=== PATIENT | male | born 1965 | race Caucasian/White ===

== ENCOUNTER 2019-07-02 20:10 | Emergency (ER) | payer MEDICAID ==
[~2019-07-02] VITALS: Ht 182.9 cm; Wt 81.0 kg
[~2019-07-02 20:10] MED LIST: CHLO25CA10 PO; DIAZ5TAB PO; HYDR28CR14 TP; KEP500T PO; LIB25C PO; NO HOME MEDS; PERM60CR4 TP; PHEN100C4 PO; PROC-8 PO
--- NOTE | 2019-07-02 20:22 | NUR ---
unable to take patient b/p in triage due to excessive movement
[2019-07-02 20:43] VITALS: BP 127/42
[2019-07-02] MEDS ORDERED: cloNIDine 0.1 mg tablet PO ONE (20:45)
[2019-07-02] MEDS ORDERED: LORazepam 1 MG tablet PO ONE (20:45)
== END 2019-07-02 20:59 | disposition home or self-care (01) ==
LOC: ER 20:11
DX: F11.23 Opioid dependence with withdrawal (principal); R51 Headache; F12.90 Cannabis use, unspecified, uncomplicated; Z86.69 Personal history of other diseases of the nervous system and sense organs; Z90.49 Acquired absence of other specified parts of digestive tract; Z98.890 Other specified postprocedural states; Z59.0 Homelessness; Z56.0 Unemployment, unspecified; Z79.899 Other long term (current) drug therapy
CPT/HCPCS: 99284

== ENCOUNTER 2019-09-04 14:30 | Emergency (ER) | payer MEDICAID ==
[~2019-09-04] VITALS: Ht 182.9 cm; Wt 81.8 kg
[2019-09-04] MEDS ORDERED: buprenorphine/naloxone 8MG-2MG SUBlingual film SL SCH (17:50)
[2019-09-04] MEDS ORDERED: ondansetron/PF 4mg/2ml inj IV ONE (17:50)
[2019-09-04] MEDS ORDERED: pantoprazole 40 MG vial IV ONE (17:50)
[2019-09-04] MEDS ORDERED: normal saline 1000ML IV soln IVB ONE ×2 (17:50)
[2019-09-04] MEDS ORDERED: buprenorphine/naloxone 8MG-2MG SUBlingual film SL ONE ×2 (17:50→18:55)
[2019-09-04] MEDS ORDERED: CAT1P TD (18:58)
[2019-09-04] MEDS ORDERED: ONDA8TAB13 PO (18:58)
[2019-09-04] MEDS ORDERED: LORazepam 1 MG tablet PO ONE (19:55)
[2019-09-04 20:03] VITALS: BP 152/88
== END 2019-09-04 20:05 | disposition home or self-care (01) ==
LOC: ER 14:30
DX: F11.23 Opioid dependence with withdrawal (principal); F17.200 Nicotine dependence, unspecified, uncomplicated; F12.90 Cannabis use, unspecified, uncomplicated; Z59.0 Homelessness; Z56.0 Unemployment, unspecified; Z90.49 Acquired absence of other specified parts of digestive tract; Z87.442 Personal history of urinary calculi; Z79.899 Other long term (current) drug therapy
CPT/HCPCS: 96374; 96375; 99284; C9113; J2405; J7030

== ENCOUNTER 2019-09-14 06:09 | Inpatient (IN) | payer MEDICAID ==
[~2019-09-14] VITALS: Ht 182.9 cm; Wt 73.0 kg
[~2019-09-14 06:09] MED LIST changes: +CAT1P TD; +ONDA8TAB13 PO
[2019-09-14] MEDS ORDERED: normal saline 1000ml 1,000 ML IV ONE (06:26)
[2019-09-14] MEDS ORDERED: LORazepam 2 mg/ml vial IV ONE (06:30)
[2019-09-14] MEDS ORDERED: normal saline 1000ML IV soln IVB ONE (06:30)
[2019-09-14] MEDS ORDERED: thiamine 100mg/ml 2ml inj. IV ONE ×2 (06:35→11:00)
[2019-09-14] MEDS ORDERED: multi-vitamin w/minerals & ferrous gluconate 9 MG/15 ML oral LIQUID PO ONE (06:35)
[2019-09-14] MEDS ORDERED: magnesium 2GM in 50ml NS 50 ML IV ONE (06:35)
[2019-09-14 07:15] LABS: BASOPHILS % (AUTO) 0.2 % (0-1); EOSINOPHILS % (AUTO) 0.3 % (0-6); HEMATOCRIT 43.8 % (42.0-52.0); HEMOGLOBIN 14.8 g/dl (14.0-17.9); LYMPHOCYTES # (AUTO) 1.5 X10'3 (1.1-4.8); LYMPHOCYTES % (AUTO) 13.4 % (21-51); MEAN CORPUSCULAR HEMOGLOBIN 29.9 PG (27.0-31.0); MEAN CORPUSCULAR HGB CONC 33.7 g/dL (33.0-36.5); MEAN CORPUSCULAR VOLUME 88.7 FL (78-98); MEAN PLATELET VOLUME 7.9 FL (7.4-10.4); NEUTROPHILS # (AUTO) 8.4 X10'3 (1.8-7.7); NEUTROPHILS % (AUTO) 77.1 % (42-75); PLATELET COUNT 211 X10'3 (140-440); RED BLOOD COUNT 4.94 X10'6 (4.70-6.10); RED CELL DISTRIBUTION WIDTH 14.1 % (11.5-14.5); WHITE BLOOD COUNT 10.9 X10'3 (4.5-11.0)
[2019-09-14 07:22] LABS: COLOR,URINE YELLOW (Yellow); GLUCOSE, URINE NEGATIVE (Neg); KETONES,URINE >=80 mg/dl (Neg); LEUKOCYTE ESTERASE ,URINE NEGATIVE (Neg); NITRITES, URINE NEGATIVE (Neg); OCCULT BLOOD,URINE NEGATIVE (Neg); PROTEIN,URINE 30 mg/dl (Neg)
[2019-09-14 07:23] LABS: UA COLLECTION TYPE VOIDED
[2019-09-14 07:24] LABS: CLARITY,URINE CLOUDY (Clear)
[2019-09-14] MEDS: cloNIDine 0.1 mg tablet PO SCH ×3 (07:26→20:40)
[2019-09-14 07:30] LABS: ALANINE AMINOTRANSFERASE 19 U/L (12-78); ALBUMIN 3.4 G/DL (3.4-5.0); ALBUMIN/GLOBULIN RATIO 1.1 (1.1-1.5); ALKALINE PHOSPHATASE 78 IU/L (46-116); ANION GAP 10 (8-16); ASPARTATE AMINO TRANSFERASE 24 U/L (10-37); BILIRUBIN,TOTAL 1.4 MG/DL (0.1-1.0); BLOOD UREA NITROGEN 19 MG/DL (7-18); BUN/CREATININE RATIO 25.3 (5.4-32.0); CALCIUM 8.5 MG/DL (8.5-10.1); CHLORIDE 102 MMOL/L (99-107); CREATININE 0.75 MG/DL (0.60-1.10); GLUCOSE 105 MG/DL (70-104); POTASSIUM 3.6 MMOL/L (3.5-5.1); SODIUM 138 MMOL/L (135-145); TOTAL CARBON DIOXIDE 25.7 MMOL/L (24-32); TOTAL PROTEIN 6.4 G/DL (6.4-8.2); eGFR > 90 ML/MIN
[2019-09-14 07:33] LABS: CAL OXALATE CRYSTALS 1+ /HPF (NEGATIVE); MUCUS STRANDS MODERATE /LPF (Neg)
[2019-09-14 07:34] LABS: RBC,URINE 0-2 /HPF (0-2); WBC,URINE 0-4 /HPF (0-4)
[2019-09-14 07:35] LABS: BACTERIA,URINE 1+ /HPF (Neg); SQUAMOUS EPITHELIAL CELL,UR FEW /LPF (FEW)
[2019-09-14 07:36] LABS: ETHANOL < 0.010 GM/DL (0.0-0.010)
[2019-09-14 07:37] LABS: CREATINE KINASE 171 U/L (39-308)
[2019-09-14 07:39] LABS: URINE AMPHETAMINE SCREEN POSITIVE (Neg); URINE BARBITUATE SCREEN NEGATIVE (Neg); URINE BENZODIAZEPINES SCREEN NEGATIVE (Neg); URINE CANNABINOID SCREEN POSITIVE (Neg); URINE COCAINE SCREEN NEGATIVE (Neg); URINE METHADONE SCREEN NEGATIVE (Neg); URINE OPIATE SCREEN NEGATIVE (Neg); URINE PHENCYCLIDINE SCREEN NEGATIVE (Neg)
[2019-09-14] MEDS ORDERED: metoclopramide 5 mg/ml inj IV ONE (08:30)
[2019-09-14] MEDS ORDERED: chlordiazePOXIDE 25mg capsule PO ONE (10:25)
[2019-09-14] MEDS ORDERED: GABA800T PO (10:57)
[2019-09-14] MEDS ORDERED: LEVE10002 PO (10:57)
--- NOTE | 2019-09-14 10:58 | NUR ---
ETOH w/d symptoms noted: coarse & fine hand tremors, light/sound sensitivity, tightness around head, occassional visual disturbances (floaties), bouts of nausea. EDMD Melida and Hosopitalist Meena notified.
[2019-09-14] MEDS ORDERED: ondansetron/PF 4mg/2ml inj IV PRN (11:00)
[2019-09-14] MEDS ORDERED: magnesium hydroxide 30ml (MOM) UD suspension PO PRN (11:00)
[2019-09-14] MEDS ORDERED: mag hydrox/Alum hydrox/simeth 30ml oral suspension PO PRN (11:00)
[2019-09-14] MEDS ORDERED: potassium Cl 20 mEq SR tablet PO PRN (11:00)
[2019-09-14] MEDS ORDERED: docusate sod 100mg capsule PO PRN (11:00)
[2019-09-14] MEDS ORDERED: acetaminophen 325mg tablet PO PRN ×2 (11:00)
[2019-09-14] MEDS ORDERED: dextrose 50%-water 50ml dispensing syringe IV PRN (11:00)
[2019-09-14] MEDS ORDERED: magnesium 4gm in 100ml NS 100 ML IV PRN (11:00)
[2019-09-14] MEDS ORDERED: magnesium Cl slow-release 64mg tablet PO PRN (11:00)
[2019-09-14] MEDS ORDERED: potassium CL 10mEq/100ml bag 100 ML IV PRN ×2 (11:00)
[2019-09-14] MEDS ORDERED: haloperidol 5mg tablet PO PRN (11:00)
[2019-09-14] MEDS ORDERED: magnesium 2GM in 50ml NS 50 ML IV PRN (11:00)
[2019-09-14] MEDS ORDERED: haloperidol lactate 5mg/ml inj IM PRN (11:00)
--- NOTE | 2019-09-14 11:47 | NUR ---
Patient in room ED 7. I have received report from Anisa ED RN and had the opportunity to ask questions and assume patient care.
[2019-09-14 12:15] VITALS: BP 129/82
[2019-09-14] MEDS: LORazepam 2 mg/ml vial IV PRN ×5 (12:30→22:34)
[2019-09-14] MEDS: levetiracetam 250mg tablet PO SCH ×2 (13:29→20:40)
--- NOTE | 2019-09-14 16:00 | NUR ---
I let Dr. Robledo know about patient deteriorating condition, she is aware and keep him on withdrawal protocol.
[2019-09-14 18:00] VITALS: BP 93/63
--- NOTE | 2019-09-14 18:30 | NUR ---
Problems reprioritized. Patient report given, questions answered & plan of care reviewed with Prudence RN.
--- NOTE | 2019-09-14 18:48 | NUR ---
Patient in room ORTHO 4020. I have received report from Pily WILHELM and had the opportunity to ask questions and assume patient care. Patient shows no sign of distress and is eating his dinner.
[2019-09-14] MEDS: K and/or MAG REPLACEMENT MC SCH (19:19)
[2019-09-14] MEDS: heparin, porcine 5000 units/ml vial SQ SCH (20:41)
[2019-09-14] MEDS ORDERED: temazepam 15mg capsule PO PRN (21:00)
[2019-09-14 22:00] VITALS: BP 113/72
[2019-09-15] MEDS: LORazepam 2 mg/ml vial IV PRN ×6 (00:32→21:04)
[2019-09-15] MEDS ORDERED: LORazepam 1 MG tablet PO ONE (05:55)
--- NOTE | 2019-09-15 06:05 | NUR ---
Patient in room ORTHO 4020. I have received report from CHOCO Prasad and had the opportunity to ask questions and assume patient care.
--- NOTE | 2019-09-15 06:42 | NUR ---
Problems reprioritized. Patient report given, questions answered & plan of care reviewed with Loulou WILHELM.
[2019-09-15 07:13] LABS: BASOPHILS % (AUTO) 0.3 % (0-1); EOSINOPHILS # (AUTO) 0.1 X10'3 (0-0.9); EOSINOPHILS % (AUTO) 1.6 % (0-6); HEMATOCRIT 42.8 % (42.0-52.0); HEMOGLOBIN 14.5 g/dl (14.0-17.9); LYMPHOCYTES # (AUTO) 1.3 X10'3 (1.1-4.8); LYMPHOCYTES % (AUTO) 17.2 % (21-51); MEAN CORPUSCULAR HEMOGLOBIN 30.1 PG (27.0-31.0); MEAN CORPUSCULAR HGB CONC 33.8 g/dL (33.0-36.5); MEAN CORPUSCULAR VOLUME 89.1 FL (78-98); MEAN PLATELET VOLUME 8.2 FL (7.4-10.4); MONOCYTES # (AUTO) 0.7 X10'3 (0-0.9); MONOCYTES % (AUTO) 8.7 % (2-12); NEUTROPHILS # (AUTO) 5.5 X10'3 (1.8-7.7); NEUTROPHILS % (AUTO) 72.2 % (42-75); PLATELET COUNT 173 X10'3 (140-440); RED BLOOD COUNT 4.81 X10'6 (4.70-6.10); RED CELL DISTRIBUTION WIDTH 13.7 % (11.5-14.5); WHITE BLOOD COUNT 7.6 X10'3 (4.5-11.0)
[2019-09-15] MEDS: levetiracetam 250mg tablet PO SCH ×2 (07:27→19:55)
[2019-09-15] MEDS: cloNIDine 0.1 mg tablet PO SCH ×3 (07:27→19:55)
[2019-09-15] MEDS: heparin, porcine 5000 units/ml vial SQ SCH ×2 (07:27→19:55)
[2019-09-15] MEDS: nicotine 14mg patch - 24hr TD SCH (07:28)
[2019-09-15 07:33] LABS: ALANINE AMINOTRANSFERASE 19 U/L (12-78); ALKALINE PHOSPHATASE 73 IU/L (46-116); ANION GAP 10 (8-16); ASPARTATE AMINO TRANSFERASE 22 U/L (10-37); BILIRUBIN,TOTAL 1.2 MG/DL (0.1-1.0); BLOOD UREA NITROGEN 15 MG/DL (7-18); BUN/CREATININE RATIO 23.4 (5.4-32.0); CALCIUM 8.2 MG/DL (8.5-10.1); CHLORIDE 106 MMOL/L (99-107); CREATININE 0.64 MG/DL (0.60-1.10); GLUCOSE 104 MG/DL (70-104); MAGNESIUM 1.8 MG/DL (1.5-2.4); POTASSIUM 3.1 MMOL/L (3.5-5.1); SODIUM 142 MMOL/L (135-145); TOTAL CARBON DIOXIDE 25.8 MMOL/L (24-32); TOTAL PROTEIN 5.9 G/DL (6.4-8.2); eGFR > 90 ML/MIN
--- NOTE | 2019-09-15 08:03 | NUR ---
Paged PICC RN for PIV placement: "RM 4020A needs PIV or extended placed please. public relations sales marketing attempted x2, pt is in withdrawals and needs ativan IV. Thanks!!"
[2019-09-15] MEDS: K and/or MAG REPLACEMENT MC SCH ×2 (08:58→20:00)
[2019-09-15] MEDS: potassium Cl 20 mEq SR tablet PO PRN ×3 (08:58→16:03)
[2019-09-15 09:50] VITALS: BP 103/72
[2019-09-15 12:31] VITALS: BP 111/87
[2019-09-15 18:00] VITALS: BP 126/89
--- NOTE | 2019-09-15 18:19 | NUR ---
Problems reprioritized. Patient report given, questions answered & plan of care reviewed with CHOCO Arango.
[2019-09-15] MEDS: HYDROcodone/acetaminophen 5mg/325mg tablet PO PRN (19:54)
[2019-09-15 22:00] VITALS: BP 116/76
[2019-09-16] MEDS: LORazepam 2 mg/ml vial IV PRN ×8 (02:29→23:56)
[2019-09-16] MEDS: HYDROcodone/acetaminophen 5mg/325mg tablet PO PRN (03:10)
[2019-09-16] MEDS: morphine 2 MG/ML inj. syringe IV PRN ×4 (03:38→22:34)
[2019-09-16 05:00] VITALS: BP 118/89
[2019-09-16 06:37] LABS: BASOPHILS % (AUTO) 0.3 % (0-1); EOSINOPHILS # (AUTO) 0.2 X10'3 (0-0.9); EOSINOPHILS % (AUTO) 3.5 % (0-6); HEMOGLOBIN 14.1 g/dl (14.0-17.9); LYMPHOCYTES # (AUTO) 1.6 X10'3 (1.1-4.8); LYMPHOCYTES % (AUTO) 27.1 % (21-51); MEAN CORPUSCULAR HEMOGLOBIN 30.6 PG (27.0-31.0); MEAN CORPUSCULAR HGB CONC 34.5 g/dL (33.0-36.5); MEAN CORPUSCULAR VOLUME 88.6 FL (78-98); MEAN PLATELET VOLUME 8.2 FL (7.4-10.4); MONOCYTES # (AUTO) 0.5 X10'3 (0-0.9); MONOCYTES % (AUTO) 8.3 % (2-12); NEUTROPHILS # (AUTO) 3.5 X10'3 (1.8-7.7); NEUTROPHILS % (AUTO) 60.8 % (42-75); PLATELET COUNT 153 X10'3 (140-440); RED BLOOD COUNT 4.63 X10'6 (4.70-6.10); WHITE BLOOD COUNT 5.7 X10'3 (4.5-11.0)
[2019-09-16 06:48] LABS: ALANINE AMINOTRANSFERASE 42 U/L (12-78); ALBUMIN 2.9 G/DL (3.4-5.0); ALKALINE PHOSPHATASE 69 IU/L (46-116); ANION GAP 9 (8-16); ASPARTATE AMINO TRANSFERASE 47 U/L (10-37); BILIRUBIN,TOTAL 0.9 MG/DL (0.1-1.0); BLOOD UREA NITROGEN 11 MG/DL (7-18); BUN/CREATININE RATIO 18.6 (5.4-32.0); CALCIUM 8.5 MG/DL (8.5-10.1); CHLORIDE 106 MMOL/L (99-107); CREATININE 0.59 MG/DL (0.60-1.10); GLUCOSE 133 MG/DL (70-104); MAGNESIUM 1.8 MG/DL (1.5-2.4); POTASSIUM 3.2 MMOL/L (3.5-5.1); SODIUM 139 MMOL/L (135-145); TOTAL CARBON DIOXIDE 24.5 MMOL/L (24-32); TOTAL PROTEIN 5.9 G/DL (6.4-8.2); eGFR > 90 ML/MIN
[2019-09-16] MEDS: nicotine 14mg patch - 24hr TD SCH (07:57)
[2019-09-16] MEDS: heparin, porcine 5000 units/ml vial SQ SCH ×2 (07:58→20:49)
[2019-09-16] MEDS: levetiracetam 250mg tablet PO SCH ×2 (07:58→20:45)
[2019-09-16] MEDS: cloNIDine 0.1 mg tablet PO SCH ×3 (07:59→20:46)
[2019-09-16] MEDS: potassium Cl 20 mEq SR tablet PO PRN ×3 (08:02→20:46)
[2019-09-16] MEDS: K and/or MAG REPLACEMENT MC SCH ×2 (08:03→20:00)
[2019-09-16 10:54] VITALS: BP 116/81
[2019-09-16] MEDS ORDERED: morphine 2 MG/ML inj. syringe IV PRN (12:00)
--- NOTE | 2019-09-16 12:00 | NUR ---
OK to DC neuro checks per MD Robledo.
[2019-09-16] MEDS ORDERED: HYDROcodone/acetaminophen 5mg/325mg tablet PO PRN (12:05)
[2019-09-16] MEDS: thiamine 100mg tablet PO SCH (13:34)
[2019-09-16] MEDS: multivitamins, therapeutics tablet PO SCH (13:34)
[2019-09-16] MEDS: folic acid 1mg tablet PO SCH (13:35)
[2019-09-16] MEDS: HYDROcodone/acetaminophen 10/325mg tab PO PRN ×3 (13:35→23:56)
[2019-09-16 18:00] VITALS: BP 123/89
--- NOTE | 2019-09-16 19:00 | NUR ---
Gave report to Nba WILHELM.
[2019-09-16 22:00] VITALS: BP 96/69
[2019-09-17] MEDS: morphine 2 MG/ML inj. syringe IV PRN ×3 (04:54→14:17)
[2019-09-17] MEDS: LORazepam 2 mg/ml vial IV PRN (04:57)
[2019-09-17 06:00] VITALS: BP 105/85
--- NOTE | 2019-09-17 06:13 | NUR ---
RECEIVED REPORT FROM CHOCO CARABALLO
--- NOTE | 2019-09-17 06:51 | NUR ---
Problems reprioritized. Patient report given, questions answered & plan of care reviewed with BOONE WILHELM.
[2019-09-17] MEDS: K and/or MAG REPLACEMENT MC SCH (07:14)
[2019-09-17] MEDS: LORazepam 1 MG tablet PO PRN ×3 (07:25→11:52)
[2019-09-17] MEDS: folic acid 1mg tablet PO SCH (07:26)
[2019-09-17] MEDS: multivitamins, therapeutics tablet PO SCH (07:26)
[2019-09-17] MEDS: levetiracetam 250mg tablet PO SCH (07:28)
[2019-09-17] MEDS: thiamine 100mg tablet PO SCH (07:28)
[2019-09-17] MEDS: nicotine 14mg patch - 24hr TD SCH (07:31)
[2019-09-17] MEDS: heparin, porcine 5000 units/ml vial SQ SCH (07:34)
[2019-09-17] MEDS: cloNIDine 0.1 mg tablet PO SCH ×2 (07:41→13:00)
[2019-09-17] MEDS: HYDROcodone/acetaminophen 10/325mg tab PO PRN ×2 (07:42→11:51)
[2019-09-17 08:03] LABS: BASOPHILS % (AUTO) 0.3 % (0-1); EOSINOPHILS # (AUTO) 0.1 X10'3 (0-0.9); EOSINOPHILS % (AUTO) 2.1 % (0-6); HEMATOCRIT 43.3 % (42.0-52.0); HEMOGLOBIN 14.8 g/dl (14.0-17.9); LYMPHOCYTES # (AUTO) 2.2 X10'3 (1.1-4.8); LYMPHOCYTES % (AUTO) 31.8 % (21-51); MEAN CORPUSCULAR HEMOGLOBIN 30.4 PG (27.0-31.0); MEAN CORPUSCULAR HGB CONC 34.3 g/dL (33.0-36.5); MEAN CORPUSCULAR VOLUME 88.7 FL (78-98); MEAN PLATELET VOLUME 8.2 FL (7.4-10.4); MONOCYTES # (AUTO) 0.6 X10'3 (0-0.9); MONOCYTES % (AUTO) 8.4 % (2-12); NEUTROPHILS # (AUTO) 3.9 X10'3 (1.8-7.7); NEUTROPHILS % (AUTO) 57.4 % (42-75); PLATELET COUNT 155 X10'3 (140-440); RED BLOOD COUNT 4.88 X10'6 (4.70-6.10); RED CELL DISTRIBUTION WIDTH 13.7 % (11.5-14.5); WHITE BLOOD COUNT 6.8 X10'3 (4.5-11.0)
[2019-09-17 08:26] LABS: ALANINE AMINOTRANSFERASE 86 U/L (12-78); ALBUMIN 3.1 G/DL (3.4-5.0); ALBUMIN/GLOBULIN RATIO 0.9 (1.1-1.5); ALKALINE PHOSPHATASE 75 IU/L (46-116); ANION GAP 9 (8-16); ASPARTATE AMINO TRANSFERASE 66 U/L (10-37); BILIRUBIN,TOTAL 0.8 MG/DL (0.1-1.0); BLOOD UREA NITROGEN 10 MG/DL (7-18); BUN/CREATININE RATIO 16.4 (5.4-32.0); CALCIUM 8.6 MG/DL (8.5-10.1); CHLORIDE 105 MMOL/L (99-107); CREATININE 0.61 MG/DL (0.60-1.10); GLUCOSE 90 MG/DL (70-104); MAGNESIUM 1.9 MG/DL (1.5-2.4); POTASSIUM 3.7 MMOL/L (3.5-5.1); SODIUM 138 MMOL/L (135-145); TOTAL CARBON DIOXIDE 24.5 MMOL/L (24-32); TOTAL PROTEIN 6.4 G/DL (6.4-8.2); eGFR > 90 ML/MIN
[2019-09-17 10:00] VITALS: BP 106/68
[2019-09-17 13:08] VITALS: BP 108/71
[2019-09-17] MEDS ORDERED: MULT-1179 PO (14:32)
[2019-09-17] MEDS ORDERED: NICO-631 TD (14:32)
[2019-09-17] MEDS ORDERED: thiamine tablet PO (14:32)
[2019-09-17] MEDS ORDERED: LORA-269 PO (14:32)
[2019-09-17] MEDS ORDERED: folic acid tablet PO (14:32)
[2019-09-17] MEDS ORDERED: CLON0.1T2 PO (14:32)
[2019-09-17] MEDS ORDERED: HYDR-4353 PO (14:38)
[2019-09-17] MEDS ORDERED: ondansetron 4mg rapidly disintigrating tab PO PRN (15:05)
--- NOTE | 2019-09-17 15:38 | NUR ---
Pt DCed with instructions understanding of instructions and with all belongings in wheelchair to private vehicle to follow up wit PCP. Pt also DCed with walking cane.
[2019-09-18] MEDS ORDERED: LORazepam 1 MG tablet PO PRN (11:00)
[2019-09-18] MEDS ORDERED: LORazepam 2 mg/ml vial IV PRN (11:00)
== END 2019-09-17 15:37 | disposition home or self-care (01) | DRG 53 ==
LOC: ER 06:10 → OBSVTOIN 10:56 → ED HOLD 10:56 → ORTHO 4S 12:11
PROVIDERS: ADMIT Internal Medicine; ATTEND Internal Medicine
DX: R56.9 Unspecified convulsions (principal); F11.20 Opioid dependence, uncomplicated; F10.10 Alcohol abuse, uncomplicated; F15.90 Other stimulant use, unspecified, uncomplicated; F17.210 Nicotine dependence, cigarettes, uncomplicated; E87.6 Hypokalemia; G89.29 Other chronic pain; Z59.0 Homelessness; Z76.5 Malingerer [conscious simulation]; Z87.442 Personal history of urinary calculi; Z56.0 Unemployment, unspecified; Z90.49 Acquired absence of other specified parts of digestive tract
CPT/HCPCS: 36415; 71045; 76937; 80053; 80177; 80305; 80320; 81001; 82009; 82140; 82550; 82948; 83605; 83735; 85025; 85610; 87081; 93306; 96365; 97116; 97161; 97530; 97535; 99285; G0378; J1644; J2060; J2270; J2765; J3411; J3475; J7030

== ENCOUNTER → 2019-09-19 | Emergency (ER) | payer MEDICAID ==
[~2019-09-19] VITALS: Ht 182.9 cm; Wt 68.6 kg
[~2019-09-19] MED LIST changes: +BUPR1FIL3 SL; -CAT1P TD; -CHLO25CA10 PO; +CLON0.1T2 PO; -DIAZ5TAB PO; +GABA800T PO; +HYDR-4353 PO; -HYDR28CR14 TP; -KEP500T PO; +LEVE10002 PO; -LIB25C PO; +LORA-269 PO; +MULT-1179 PO; +NICO-631 TD; -NO HOME MEDS; -ONDA8TAB13 PO; -PERM60CR4 TP; -PHEN100C4 PO; -PROC-8 PO; +folic acid tablet PO; +normal saline 1000ML IV soln IV ONE; +ondansetron/PF 4mg/2ml inj IV ONE; +thiamine tablet PO
[2019-09-19 20:34] VITALS: BP 109/75
== END | disposition home or self-care (01) ==
LOC: ER 18:21
DX: T40.1X1A Poisoning by heroin, accidental (unintentional), initial encounter (principal); K46.9 Unspecified abdominal hernia without obstruction or gangrene; F12.90 Cannabis use, unspecified, uncomplicated; F11.90 Opioid use, unspecified, uncomplicated; Z87.442 Personal history of urinary calculi; Z90.49 Acquired absence of other specified parts of digestive tract; Z59.0 Homelessness; Z56.0 Unemployment, unspecified; Z88.8 Allergy status to other drugs, medicaments and biological substances; Z79.899 Other long term (current) drug therapy; Y92.89 Other specified places as the place of occurrence of the external cause
CPT/HCPCS: 82948; 93005; 99291; J2405; J7030

== ENCOUNTER 2019-09-20 16:01 | Emergency (ER) | payer MEDICAID ==
[~2019-09-20] VITALS: Ht 182.9 cm; Wt 72.7 kg
[~2019-09-20 16:01] MED LIST changes: -BUPR1FIL3 SL; -normal saline 1000ML IV soln IV ONE; -ondansetron/PF 4mg/2ml inj IV ONE
[2019-09-20 16:09] VITALS: BP 128/95
--- NOTE | 2019-09-20 18:29 | NUR ---
MELITON Ernst AT BEDSIDE ASSESSING PATIENT
[2019-09-20] MEDS ORDERED: ondansetron 4mg rapidly disintigrating tab PO ONE (18:40)
[2019-09-20] MEDS ORDERED: buprenorphine/naloxone 8MG-2MG SUBlingual film SL STA ×3 (18:43→20:48)
--- NOTE | 2019-09-20 19:20 | NUR ---
supplied patient with pamphlet for "groups" an opiate addiction tx out side of the ed
--- NOTE | 2019-09-20 20:42 | NUR ---
MELITON Ernst AT BEDSIDE ASSESSING PATIENT DISCUSSING OUT PATIENT PROGRAMS, PATIENT IS A0X4 WITH RR EVEN UN LABORED NO OBSERVABLE S/S OF ACUTE STRESS OR WITHDRAWALS OBSERVED AT THIS TIME WILL CONTINUE TO MONITOR
[2019-09-20] MEDS ORDERED: LORazepam 1 MG tablet PO ONE (20:50)
[2019-09-20] MEDS ORDERED: BUPR1FIL3 SL (20:51)
== END 2019-09-20 21:11 | disposition home or self-care (01) ==
LOC: ER 16:05
DX: F11.23 Opioid dependence with withdrawal (principal); F12.90 Cannabis use, unspecified, uncomplicated; Z59.0 Homelessness; Z56.0 Unemployment, unspecified; Z87.442 Personal history of urinary calculi; Z90.49 Acquired absence of other specified parts of digestive tract; Z88.5 Allergy status to narcotic agent; Z79.899 Other long term (current) drug therapy
CPT/HCPCS: 99284

== ENCOUNTER 2019-09-22 13:31 | Emergency (ER) | payer MEDICAID ==
[~2019-09-22] VITALS: Ht 182.9 cm; Wt 73.3 kg
[~2019-09-22 13:31] MED LIST changes: +BUPR1FIL3 SL
[2019-09-22 13:43] VITALS: BP 106/65
[2019-09-22] MEDS ORDERED: buprenorphine/naloxone 8MG-2MG SUBlingual film SL STA (13:56)
[2019-09-22] MEDS ORDERED: hyDROXYzine 50 mg/ml injection ***IM only IM ONE (14:00)
== END 2019-09-22 15:46 | disposition home or self-care (01) ==
LOC: ER 13:34
DX: F10.10 Alcohol abuse, uncomplicated (principal); F11.10 Opioid abuse, uncomplicated; F12.90 Cannabis use, unspecified, uncomplicated; Z86.69 Personal history of other diseases of the nervous system and sense organs; Z87.442 Personal history of urinary calculi; Z90.49 Acquired absence of other specified parts of digestive tract; Z98.890 Other specified postprocedural states; Z56.0 Unemployment, unspecified; Z59.0 Homelessness; Z88.8 Allergy status to other drugs, medicaments and biological substances; Z79.899 Other long term (current) drug therapy
CPT/HCPCS: 96372; 99283; J3410

== ENCOUNTER 2020-05-17 09:21 | Emergency (ER) | payer MEDICAID ==
[~2020-05-17] VITALS: Ht 182.9 cm; Wt 61.4 kg
[~2020-05-17 09:21] MED LIST changes: -BUPR1FIL3 SL; -MULT-1179 PO; +MULT-25 PO
[2020-05-17] MEDS ORDERED: cloNIDine 0.1 mg tablet PO ONE (09:40)
[2020-05-17] MEDS ORDERED: acetaminophen 325mg tablet PO ONE (09:40)
[2020-05-17] MEDS ORDERED: ondansetron/PF 4mg/2ml inj IV ONE (09:40)
[2020-05-17] MEDS ORDERED: normal saline 1000ML IV soln IVB ONE (09:40)
[2020-05-17 10:05] LABS: BASOPHILS % (AUTO) 0.6 % (0-1); EOSINOPHILS % (AUTO) 0.6 % (0-6); HEMATOCRIT 39.5 % (42.0-52.0); HEMOGLOBIN 13.1 g/dl (14.0-17.9); LYMPHOCYTES # (AUTO) 1.4 X10'3 (1.1-4.8); LYMPHOCYTES % (AUTO) 24.5 % (21-51); MEAN CORPUSCULAR HEMOGLOBIN 30.1 PG (27.0-31.0); MEAN CORPUSCULAR HGB CONC 33.2 g/dL (33.0-36.5); MEAN CORPUSCULAR VOLUME 90.6 FL (78-98); MONOCYTES # (AUTO) 0.5 X10'3 (0-0.9); MONOCYTES % (AUTO) 8.2 % (2-12); NEUTROPHILS # (AUTO) 3.7 X10'3 (1.8-7.7); NEUTROPHILS % (AUTO) 66.1 % (42-75); PLATELET COUNT 181 X10'3 (140-440); RED BLOOD COUNT 4.36 X10'6 (4.70-6.10); RED CELL DISTRIBUTION WIDTH 13.8 % (11.5-14.5); WHITE BLOOD COUNT 5.6 X10'3 (4.5-11.0)
[2020-05-17 10:20] LABS: ALANINE AMINOTRANSFERASE 25 U/L (12-78); ALBUMIN 3.7 G/DL (3.4-5.0); ALBUMIN/GLOBULIN RATIO 1.2 (1.1-1.5); ALKALINE PHOSPHATASE 54 IU/L (46-116); ANION GAP 11 (8-16); ASPARTATE AMINO TRANSFERASE 17 U/L (10-37); BILIRUBIN,TOTAL 0.6 MG/DL (0.1-1.0); BLOOD UREA NITROGEN 14 MG/DL (7-18); BUN/CREATININE RATIO 15.7 (5.4-32.0); CHLORIDE 103 MMOL/L (99-107); CREATININE 0.89 MG/DL (0.60-1.10); GLUCOSE 138 MG/DL (70-104); LIPASE < 50 U/L (73-393); POTASSIUM 3.8 MMOL/L (3.5-5.1); SODIUM 139 MMOL/L (135-145); TOTAL PROTEIN 6.8 G/DL (6.4-8.2); eGFR 90 ML/MIN
[2020-05-17] MEDS ORDERED: mag hydrox/Alum hydrox/simeth 30ml oral suspension PO ONE (10:55)
[2020-05-17] MEDS ORDERED: CLON-473 PO (10:57)
[2020-05-17] MEDS ORDERED: ONDA4TAB6 PO (10:57)
[2020-05-17 11:13] VITALS: BP 132/86
== END 2020-05-17 11:14 | disposition home or self-care (01) ==
LOC: ER 09:21
DX: F11.23 Opioid dependence with withdrawal (principal); R11.10 Vomiting, unspecified; F12.90 Cannabis use, unspecified, uncomplicated; Z72.89 Other problems related to lifestyle; Z86.69 Personal history of other diseases of the nervous system and sense organs; Z87.442 Personal history of urinary calculi; Z90.49 Acquired absence of other specified parts of digestive tract; Z98.890 Other specified postprocedural states; Z56.0 Unemployment, unspecified; Z59.0 Homelessness; Z88.8 Allergy status to other drugs, medicaments and biological substances; Z79.899 Other long term (current) drug therapy
CPT/HCPCS: 36415; 80053; 83690; 85025; 96361; 96374; 99284; J2405; J7030

== ENCOUNTER 2021-01-25 09:16 | Emergency (ER) | payer MEDICAID ==
[~2021-01-25] VITALS: Ht 185.4 cm; Wt 73.8 kg
[~2021-01-25 09:16] MED LIST changes: +CLON-473 PO; +ONDA4TAB6 PO
[2021-01-25 10:26] VITALS: BP 141/111
[2021-01-25] MEDS ORDERED: CHLO25CA10 PO (10:28)
== END 2021-01-25 10:53 | disposition home or self-care (01) ==
LOC: ER 09:18
DX: F10.239 Alcohol dependence with withdrawal, unspecified (principal); Z87.442 Personal history of urinary calculi; F12.10 Cannabis abuse, uncomplicated; F14.10 Cocaine abuse, uncomplicated; Z56.0 Unemployment, unspecified; Z59.0 Homelessness; Z88.8 Allergy status to other drugs, medicaments and biological substances; Z79.899 Other long term (current) drug therapy
CPT/HCPCS: 93005; 99284

== ENCOUNTER 2021-01-28 15:27 | Emergency (ER) | payer MEDICAID ==
[~2021-01-28] VITALS: Ht 185.4 cm; Wt 71.8 kg
[~2021-01-28 15:27] MED LIST changes: +CHLO25CA10 PO
[2021-01-28 19:40] VITALS: BP 144/99
== END 2021-01-28 19:41 | disposition home or self-care (01) ==
LOC: ER 15:27
DX: F10.129 Alcohol abuse with intoxication, unspecified (principal); G40.909 Epilepsy, unspecified, not intractable, without status epilepticus; F12.90 Cannabis use, unspecified, uncomplicated; F11.90 Opioid use, unspecified, uncomplicated; Z87.440 Personal history of urinary (tract) infections; Z90.49 Acquired absence of other specified parts of digestive tract; Z56.0 Unemployment, unspecified; Z59.0 Homelessness; Z88.8 Allergy status to other drugs, medicaments and biological substances
CPT/HCPCS: 99283

== ENCOUNTER 2021-01-29 01:50 | Emergency (ER) | payer MEDICAID ==
[~2021-01-29] VITALS: Ht 185.4 cm; Wt 86.4 kg
--- NOTE | 2021-01-29 03:41 | NUR ---
PT HAS BEEN IN W/C, NO SEIZURE ACTIVITY NOTED. PT ASKING FOR FOOD AND A SODA
[2021-01-29] MEDS ORDERED: levetiracetam 250mg tablet PO ONE (04:00)
[2021-01-29] MEDS ORDERED: chlordiazePOXIDE 25mg capsule PO ONE ×2 (04:00→04:30)
[2021-01-29 04:32] VITALS: BP 140/90
== END 2021-01-29 04:34 | disposition home or self-care (01) ==
LOC: ER 01:51
DX: F10.239 Alcohol dependence with withdrawal, unspecified (principal); F12.90 Cannabis use, unspecified, uncomplicated; F11.90 Opioid use, unspecified, uncomplicated; Z86.69 Personal history of other diseases of the nervous system and sense organs; Z87.442 Personal history of urinary calculi; Z90.49 Acquired absence of other specified parts of digestive tract; Z98.890 Other specified postprocedural states; Z72.89 Other problems related to lifestyle; Z56.0 Unemployment, unspecified; Z59.0 Homelessness; Z88.8 Allergy status to other drugs, medicaments and biological substances; Z79.899 Other long term (current) drug therapy; Y90.9 Presence of alcohol in blood, level not specified
CPT/HCPCS: 99284

== ENCOUNTER 2021-02-04 12:08 | Emergency (ER) | payer MEDICAID ==
[~2021-02-04] VITALS: Ht 185.4 cm; Wt 68.0 kg
[2021-02-04 12:43] VITALS: BP 134/95
[2021-02-04] MEDS ORDERED: ondansetron 4mg rapidly disintigrating tab PO ONE (12:45)
[2021-02-04] MEDS ORDERED: chlordiazePOXIDE 25mg capsule PO ONE (12:45)
[2021-02-04] MEDS ORDERED: CHLO25CA10 PO (12:55)
[2021-02-04] MEDS ORDERED: ONDA4TAB6 PO (13:02)
== END 2021-02-04 13:25 | disposition home or self-care (01) ==
LOC: ER 12:08
DX: F10.239 Alcohol dependence with withdrawal, unspecified (principal); G40.909 Epilepsy, unspecified, not intractable, without status epilepticus; F12.90 Cannabis use, unspecified, uncomplicated; Z87.442 Personal history of urinary calculi; Z72.89 Other problems related to lifestyle; Z56.0 Unemployment, unspecified; Z59.0 Homelessness; Z79.899 Other long term (current) drug therapy; Z88.8 Allergy status to other drugs, medicaments and biological substances; Y90.9 Presence of alcohol in blood, level not specified
CPT/HCPCS: 99283

== ENCOUNTER 2021-02-21 23:52 | Inpatient (IN) | payer MEDICAID ==
[~2021-02-21] VITALS: Ht 185.4 cm; Wt 73.7 kg
[2021-02-22 00:38] LABS: BASOPHILS # (AUTO) 0.1 X10'3 (0-0.2); BASOPHILS % (AUTO) 0.9 % (0-1); EOSINOPHILS % (AUTO) 0 % (0-6); LYMPHOCYTES # (AUTO) 1.7 X10'3 (1.1-4.8); LYMPHOCYTES % (AUTO) 17.3 % (21-51); MEAN CORPUSCULAR HEMOGLOBIN 32.8 PG (27.0-31.0); MEAN CORPUSCULAR HGB CONC 33.3 g/dL (33.0-36.5); MEAN CORPUSCULAR VOLUME 98.3 FL (78-98); MEAN PLATELET VOLUME 7.7 FL (7.4-10.4); MONOCYTES # (AUTO) 0.7 X10'3 (0-0.9); MONOCYTES % (AUTO) 7.6 % (2-12); NEUTROPHILS # (AUTO) 7.3 X10'3 (1.8-7.7); NEUTROPHILS % (AUTO) 74.2 % (42-75); PLATELET COUNT 186 X10'3 (140-440); RED BLOOD COUNT 4.58 X10'6 (4.70-6.10); RED CELL DISTRIBUTION WIDTH 16.5 % (11.5-14.5); WHITE BLOOD COUNT 9.8 X10'3 (4.5-11.0)
[2021-02-22 00:57] LABS: ALANINE AMINOTRANSFERASE 72 U/L (12-78); ALBUMIN 4.1 G/DL (3.4-5.0); ALBUMIN/GLOBULIN RATIO 1.1 (1.1-1.5); ALKALINE PHOSPHATASE 95 IU/L (46-116); ANION GAP 16 (8-16); ASPARTATE AMINO TRANSFERASE 92 U/L (10-37); BILIRUBIN,TOTAL 0.4 MG/DL (0.1-1.0); BLOOD UREA NITROGEN 16 MG/DL (7-18); CALCIUM 8.6 MG/DL (8.5-10.1); CHLORIDE 99 MMOL/L (99-107); CREATININE 0.84 MG/DL (0.60-1.10); GLUCOSE 155 MG/DL (70-104); POTASSIUM 3.6 MMOL/L (3.5-5.1); SODIUM 138 MMOL/L (135-145); TOTAL CARBON DIOXIDE 22.9 MMOL/L (24-32); TOTAL PROTEIN 7.9 G/DL (6.4-8.2); eGFR > 90 ML/MIN
[2021-02-22 01:03] LABS: LIPASE 192 U/L (73-393)
--- NOTE | 2021-02-22 01:44 | NUR ---
Pt heart rate at 120. MD notified
[2021-02-22] MEDS ORDERED: normal saline 1000ML IV soln IVB ONE (03:00)
[2021-02-22] MEDS ORDERED: pantoprazole 40 MG vial IV ONE (03:00)
[2021-02-22] MEDS ORDERED: ondansetron/PF 4mg/2ml inj IV ONE (03:00)
[2021-02-22] MEDS ORDERED: phenobarbital inj 260 MG in normal saline 100ml IV soln 98 ML IV SCH (03:00)
[2021-02-22] MEDS ORDERED: phenobarbital inj 260 MG in normal saline 100ml IV soln 98 ML IV ONE (03:07)
[2021-02-22] MEDS ORDERED: diltiazem 5mg/ml 5ml inj. IV ONE (05:05)
[2021-02-22] MEDS ORDERED: bisacodyl 10mg suppository rectal RC PRN (05:25)
[2021-02-22] MEDS ORDERED: ondansetron/PF 4mg/2ml inj IV PRN (05:25)
[2021-02-22] MEDS ORDERED: magnesium hydroxide 30ml (MOM) UD suspension PO PRN (05:25)
[2021-02-22] MEDS ORDERED: acetaminophen 325mg tablet PO PRN ×2 (05:25)
[2021-02-22] MEDS ORDERED: HYDROmorphone inj. 0.5 MG/0.5 ML DISP.SYRIN IV PRN (05:25)
[2021-02-22] MEDS ORDERED: mag hydrox/Alum hydrox/simeth 30ml oral suspension PO PRN (05:25)
[2021-02-22] MEDS ORDERED: ondansetron 4mg rapidly disintigrating tab PO PRN (05:25)
[2021-02-22] MEDS ORDERED: diphenhydrAMINE 25mg capsule PO PRN (05:25)
[2021-02-22] MEDS ORDERED: HYDROcodone/acetaminophen 5mg/325mg tablet PO PRN (05:25)
[2021-02-22] MEDS ORDERED: acetaminophen 650mg rectal suppository RC PRN (05:25)
[2021-02-22] MEDS ORDERED: dextrose 50%-water 50ml dispensing syringe IV PRN (05:30)
[2021-02-22] MEDS ORDERED: normal saline 1000ml 1,000 ML IV ONE ×2 (05:30→06:10)
[2021-02-22] MEDS ORDERED: LORazepam 2 mg/ml vial IV ONE (05:30)
[2021-02-22] MEDS: morphine 2 MG/ML inj. syringe IV PRN ×4 (05:52→19:10)
[2021-02-22] MEDS: normal saline 1000ml 1,000 ML IV SCH ×2 (06:08→20:39)
[2021-02-22 06:31] LABS: URINE AMPHETAMINE SCREEN NEGATIVE (Neg); URINE BARBITUATE SCREEN POSITIVE (Neg); URINE BENZODIAZEPINES SCREEN POSITIVE (Neg); URINE CANNABINOID SCREEN POSITIVE (Neg); URINE COCAINE SCREEN NEGATIVE (Neg); URINE METHADONE SCREEN NEGATIVE (Neg); URINE OPIATE SCREEN NEGATIVE (Neg); URINE PHENCYCLIDINE SCREEN NEGATIVE (Neg)
--- NOTE | 2021-02-22 06:45 | NUR ---
patient placed on 2L of O2nc sat RA 92-93%, now sating 99%.
[2021-02-22] MEDS ORDERED: diltiazem-D5W 125mg/125ml 125 ML IV SCH (06:55)
--- NOTE | 2021-02-22 06:56 | NUR ---
PATIENT REMAINED ASYMPTOMATIC WITH HR 129-145.SPOKE TO DR. SHEPHERD OBTAINED AN ORDER FOR CARISSA VITALE DR. AWARE OF PATIENT'S SBP 90'S PREVIOUS BP READING,BP AT THIS TIME IS 117/71.
[2021-02-22] MEDS ORDERED: diltiazem-NS 100mg/100ml 100 ML IV SCH (07:00)
--- NOTE | 2021-02-22 07:00 | NUR ---
290ml urine out.
--- NOTE | 2021-02-22 07:22 | NUR ---
cardizem started 2.5mg/hr, will monitor,if aptietn tolerates will increase.
--- NOTE | 2021-02-22 07:35 | NUR ---
cardizem increased to 5mg/hr bp at this [id number]/69 hr 159.pt asymptomatic.
[2021-02-22] MEDS: gabapentin 400mg capsule PO SCH ×2 (08:00→18:59)
[2021-02-22] MEDS ORDERED: cloNIDine 0.1 mg tablet PO SCH (08:00)
[2021-02-22] MEDS: cloNIDine 0.1 mg tablet PO SCH ×3 (08:00→18:58)
[2021-02-22] MEDS ORDERED: folic acid inj. 2 MG, thiamine inj. 100 MG, MVI, adult No.4 with vit. K 10 ML in dextro... IV SCH ×4 (08:00)
[2021-02-22] MEDS ORDERED: LORazepam 1 MG tablet PO SCH (08:00)
--- NOTE | 2021-02-22 08:03 | NUR ---
bp 94/62 hr 158, danilo dc'd prior calling . ordered changed danilo drip to iodarone drip.
[2021-02-22] MEDS ORDERED: amiodarone 150mg/dext, iso-os 100 ML IV ONE (08:05)
[2021-02-22] MEDS: thiamine 100mg tablet PO SCH (08:29)
[2021-02-22] MEDS: levetiracetam 250mg tablet PO SCH ×2 (08:29→18:59)
[2021-02-22] MEDS: pantoprazole 40mg Tablet.DR PO SCH (08:29)
[2021-02-22] MEDS: multivitamins, therapeutics tablet PO SCH (08:29)
[2021-02-22] MEDS: docusate sod 100mg capsule PO SCH ×2 (08:30→19:10)
[2021-02-22] MEDS: nicotine 14mg patch - 24hr TD SCH (08:30)
[2021-02-22] MEDS: folic acid 1mg tablet PO SCH (08:30)
[2021-02-22] MEDS: amiodarone/D5 360MG/200ML BAG 200 ML IV SCH ×3 (08:34→20:38)
[2021-02-22 08:49] LABS: BASOPHILS % (AUTO) 0.5 % (0-1); EOSINOPHILS % (AUTO) 0.1 % (0-6); HEMATOCRIT 40.7 % (42.0-52.0); HEMOGLOBIN 13.5 g/dl (14.0-17.9); LYMPHOCYTES # (AUTO) 1.5 X10'3 (1.1-4.8); LYMPHOCYTES % (AUTO) 17.9 % (21-51); MEAN CORPUSCULAR HEMOGLOBIN 32.9 PG (27.0-31.0); MEAN CORPUSCULAR HGB CONC 33.2 g/dL (33.0-36.5); MEAN CORPUSCULAR VOLUME 99.1 FL (78-98); MEAN PLATELET VOLUME 7.9 FL (7.4-10.4); MONOCYTES # (AUTO) 0.7 X10'3 (0-0.9); MONOCYTES % (AUTO) 8.2 % (2-12); NEUTROPHILS # (AUTO) 6.3 X10'3 (1.8-7.7); NEUTROPHILS % (AUTO) 73.3 % (42-75); PLATELET COUNT 136 X10'3 (140-440); RED CELL DISTRIBUTION WIDTH 16.3 % (11.5-14.5); WHITE BLOOD COUNT 8.5 X10'3 (4.5-11.0)
[2021-02-22 09:02] LABS: PARTIAL THROMBOPLASTIN TIME 30 SECONDS (22-32)
[2021-02-22 09:11] LABS: MAGNESIUM 1.6 MG/DL (1.5-2.4); PHOSPHORUS 2.9 MG/DL (2.3-4.5)
--- NOTE | 2021-02-22 09:56 | NUR ---
paged Dr. Phillips.
[2021-02-22] MEDS: HYDROcodone/acetaminophen 10/325mg tab PO PRN ×2 (09:59→18:59)
[2021-02-22] MEDS ORDERED: potassium Cl 40MEQ/1/2NS 520ml 520 ML IV PRN (10:35)
[2021-02-22] MEDS ORDERED: potassium Cl 20 mEq SR tablet PO PRN (10:35)
[2021-02-22] MEDS ORDERED: magnesium 4gm in 100ml NS 100 ML IV PRN (10:35)
--- NOTE | 2021-02-22 10:57 | NUR ---
no call back from Dr. Phillips.
--- NOTE | 2021-02-22 11:52 | NUR ---
paged Dr. Phillips adetailed message regarding patient's consistent hr 140-170's sbp 110.
[2021-02-22] MEDS: LORazepam 2 mg/ml vial IV PRN ×7 (11:58→22:53)
[2021-02-22] MEDS: cyclobenzaprine 10mg tablet PO PRN ×2 (11:59→18:58)
--- NOTE | 2021-02-22 12:02 | NUR ---
assisting RN with pt care, pt c/o going through withdrawals, last ETOH was yesterday, pt is very shaky, medicated with ativan per MD order
--- NOTE | 2021-02-22 15:11 | NUR ---
paged Dr. Phillips again since no call.
--- NOTE | 2021-02-22 15:44 | NUR ---
350 urine out from urinal.
[2021-02-22] MEDS ORDERED: digoxin 250mcg/ml 2ml ampule IV ONE (18:05)
[2021-02-22] MEDS ORDERED: haloperidol lactate 5mg/ml inj IM PRN (18:10)
--- NOTE | 2021-02-22 18:37 | NUR ---
PATIENT'S BEDDINGS CHANGED,SOAKED AND WET,GIVEN ATIVAN,REPORT GIVEN TO ROSE WILHELM.PT EATING DINNER.
--- NOTE | 2021-02-22 18:40 | NUR ---
SPOKE TO DR. ACUNA, PATIENT WILL BE ON DIG IVP SCHEDULED AND AMNIODARONE IV DRIP AT THE SAME TIME.MADE AWARE THAT PATIENT'S HR IS 143,REMAINS ASYMPTOMATIC.
[2021-02-22] MEDS: K and/or MAG REPLACEMENT MC SCH (18:46)
--- NOTE | 2021-02-22 19:40 | NUR ---
Patient resting in stretcher states wanting morphine IV since norco is "just pissing on the fire". Shaky at this time and remains tachycardic.
--- NOTE | 2021-02-23 00:22 | NUR ---
Patient transferred over to hospital bed- tolerated well. Appears to be sleeping at this time, even and unlabored respriations. Linens changed- noted that patient has still been diaphoretic.
[2021-02-23] MEDS: amiodarone/D5 360MG/200ML BAG 200 ML IV SCH ×3 (02:17→14:25)
[2021-02-23] MEDS: LORazepam 2 mg/ml vial IV PRN ×3 (03:22→15:52)
--- NOTE | 2021-02-23 05:49 | NUR ---
Patient had episode of incontinence- held urinal in place but not all made it in. Linens changed, dry pads placed under him. Able to easily follow commands and turn side to side. No further needs at this time.
[2021-02-23] MEDS ORDERED: digoxin 250mcg/ml 2ml ampule IV ONE ×3 (06:00→13:05)
[2021-02-23] MEDS: cloNIDine 0.1 mg tablet PO SCH ×3 (08:00→20:48)
[2021-02-23] MEDS: K and/or MAG REPLACEMENT MC SCH ×2 (08:00→20:47)
[2021-02-23] MEDS: levetiracetam 250mg tablet PO SCH ×2 (08:29→20:48)
[2021-02-23] MEDS: pantoprazole 40mg Tablet.DR PO SCH (08:29)
[2021-02-23] MEDS: multivitamins, therapeutics tablet PO SCH (08:29)
[2021-02-23] MEDS: nicotine 14mg patch - 24hr TD SCH (08:30)
[2021-02-23] MEDS: folic acid 1mg tablet PO SCH (08:30)
[2021-02-23] MEDS: thiamine 100mg tablet PO SCH (08:30)
[2021-02-23] MEDS: morphine 2 MG/ML inj. syringe IV PRN ×2 (08:31→22:25)
[2021-02-23] MEDS: docusate sod 100mg capsule PO SCH ×2 (10:09→20:47)
[2021-02-23] MEDS: gabapentin 400mg capsule PO SCH ×2 (10:09→20:48)
[2021-02-23 10:11] LABS: BASOPHILS % (AUTO) 0.4 % (0-1); EOSINOPHILS % (AUTO) 0.7 % (0-6); HEMATOCRIT 42.4 % (42.0-52.0); HEMOGLOBIN 13.9 g/dl (14.0-17.9); LYMPHOCYTES % (AUTO) 16.2 % (21-51); MEAN CORPUSCULAR HEMOGLOBIN 32.6 PG (27.0-31.0); MEAN CORPUSCULAR HGB CONC 32.8 g/dL (33.0-36.5); MEAN CORPUSCULAR VOLUME 99.5 FL (78-98); MEAN PLATELET VOLUME 8.4 FL (7.4-10.4); MONOCYTES # (AUTO) 0.5 X10'3 (0-0.9); MONOCYTES % (AUTO) 8.5 % (2-12); NEUTROPHILS # (AUTO) 4.6 X10'3 (1.8-7.7); NEUTROPHILS % (AUTO) 74.2 % (42-75); PLATELET COUNT 113 X10'3 (140-440); RED BLOOD COUNT 4.26 X10'6 (4.70-6.10); RED CELL DISTRIBUTION WIDTH 16.2 % (11.5-14.5); WHITE BLOOD COUNT 6.2 X10'3 (4.5-11.0)
[2021-02-23 10:30] LABS: ALANINE AMINOTRANSFERASE 46 U/L (12-78); ALBUMIN 2.6 G/DL (3.4-5.0); ALBUMIN/GLOBULIN RATIO 0.8 (1.1-1.5); ALKALINE PHOSPHATASE 66 IU/L (46-116); AMYLASE 27 U/L (25-115); ANION GAP 11 (8-16); ASPARTATE AMINO TRANSFERASE 53 U/L (10-37); BILIRUBIN,TOTAL 0.8 MG/DL (0.1-1.0); BLOOD UREA NITROGEN 9 MG/DL (7-18); BUN/CREATININE RATIO 13.2 (5.4-32.0); CALCIUM 7.4 MG/DL (8.5-10.1); CHLORIDE 103 MMOL/L (99-107); CREATININE 0.68 MG/DL (0.60-1.10); GLUCOSE 160 MG/DL (70-104); LIPASE 62 U/L (73-393); MAGNESIUM 1.4 MG/DL (1.5-2.4); POTASSIUM 3.4 MMOL/L (3.5-5.1); SODIUM 140 MMOL/L (135-145); TOTAL CARBON DIOXIDE 26.2 MMOL/L (24-32); TOTAL PROTEIN 5.8 G/DL (6.4-8.2); eGFR > 90 ML/MIN
--- NOTE | 2021-02-23 10:35 | NUR ---
pagephuong cardoso regarding pt hr still in 110-140 and regarding question related to amiodrone drip.
--- NOTE | 2021-02-23 10:51 | NUR ---
spoke to dr acrol cardoso regarding pt condition informed that pt hr in btw 110-150;s and bp 110 systolic and it drops down to 90's . current hr 138 and bp 110/83 and pt is resting and sleeping ,informed that pt is on amiodrone drip is it okay to continue with the drip or it needs some changes ,as per md no changes continue the amiodrone as per orders and md stated he will review the case and go from there .followed the orders and continued the amiodrone as per md orders.
--- NOTE | 2021-02-23 14:28 | NUR ---
called ER for report, left message for call back
--- NOTE | 2021-02-23 15:05 | NUR ---
Pt IV infiltrated, after several attempts new IV est upper R AC est with ultrasound.
[2021-02-23 16:00] VITALS: BP 125/107
--- NOTE | 2021-02-23 16:00 | NUR ---
patient stable. vital signs upon arrival to floor hr 133, sp02 93%, 24RR, BP 122//107
[2021-02-23] MEDS: normal saline 1000ml 1,000 ML IV SCH (17:23)
[2021-02-23 18:00] VITALS: BP 114/89
--- NOTE | 2021-02-23 18:32 | NUR ---
Problems reprioritized. Patient report given, questions answered & plan of care reviewed with Ileana WILHELM.
--- NOTE | 2021-02-23 18:57 | NUR ---
Patient in room PCU 3012. I have received report from CHOCO Dunham and had the opportunity to ask questions and assume patient care.
[2021-02-23] MEDS: digoxin 250mcg/ml 2ml ampule IV SCH (20:47)
[2021-02-23] MEDS: potassium Cl 20 mEq SR tablet PO PRN (20:48)
[2021-02-23] MEDS: magnesium Cl slow-release 64mg tablet PO PRN (20:49)
[2021-02-23 22:00] VITALS: BP 119/79
[2021-02-24 02:00] VITALS: BP 111/90
[2021-02-24] MEDS: LORazepam 2 mg/ml vial IV PRN ×7 (02:33→21:46)
[2021-02-24] MEDS: morphine 2 MG/ML inj. syringe IV PRN ×5 (03:39→21:48)
[2021-02-24] MEDS ORDERED: LORazepam 1 MG tablet PO PRN (05:30)
[2021-02-24] MEDS ORDERED: LORazepam 2 mg/ml vial IV PRN (05:30)
[2021-02-24 06:00] VITALS: BP 128/86
--- NOTE | 2021-02-24 06:43 | NUR ---
Problems reprioritized. Patient report given, questions answered & plan of care reviewed with CHOCO Weinberg.
[2021-02-24 07:41] LABS: BASOPHILS % (AUTO) 0.2 % (0-1); EOSINOPHILS # (AUTO) 0.1 X10'3 (0-0.9); EOSINOPHILS % (AUTO) 0.9 % (0-6); HEMOGLOBIN 14.9 g/dl (14.0-17.9); LYMPHOCYTES # (AUTO) 1.3 X10'3 (1.1-4.8); LYMPHOCYTES % (AUTO) 20.6 % (21-51); MEAN CORPUSCULAR HEMOGLOBIN 32.9 PG (27.0-31.0); MEAN CORPUSCULAR HGB CONC 33.1 g/dL (33.0-36.5); MEAN CORPUSCULAR VOLUME 99.4 FL (78-98); MEAN PLATELET VOLUME 8.9 FL (7.4-10.4); MONOCYTES # (AUTO) 0.4 X10'3 (0-0.9); MONOCYTES % (AUTO) 6.4 % (2-12); NEUTROPHILS # (AUTO) 4.4 X10'3 (1.8-7.7); NEUTROPHILS % (AUTO) 71.9 % (42-75); PLATELET COUNT 89 X10'3 (140-440); RED BLOOD COUNT 4.53 X10'6 (4.70-6.10); RED CELL DISTRIBUTION WIDTH 15.9 % (11.5-14.5); WHITE BLOOD COUNT 6.2 X10'3 (4.5-11.0)
[2021-02-24] MEDS: nicotine 14mg patch - 24hr TD SCH (07:50)
[2021-02-24] MEDS: multivitamins, therapeutics tablet PO SCH (07:51)
[2021-02-24] MEDS: gabapentin 400mg capsule PO SCH ×2 (07:51→21:47)
[2021-02-24] MEDS: folic acid 1mg tablet PO SCH (07:51)
[2021-02-24] MEDS: cloNIDine 0.1 mg tablet PO SCH ×3 (07:51→21:47)
[2021-02-24] MEDS: levetiracetam 250mg tablet PO SCH ×2 (07:51→21:47)
[2021-02-24] MEDS: thiamine 100mg tablet PO SCH (07:51)
[2021-02-24] MEDS: pantoprazole 40mg Tablet.DR PO SCH (07:51)
[2021-02-24] MEDS: docusate sod 100mg capsule PO SCH ×2 (07:58→21:47)
[2021-02-24] MEDS: K and/or MAG REPLACEMENT MC SCH ×2 (08:00→20:00)
[2021-02-24 08:16] LABS: ALANINE AMINOTRANSFERASE 46 U/L (12-78); ALBUMIN 2.5 G/DL (3.4-5.0); ALBUMIN/GLOBULIN RATIO 0.8 (1.1-1.5); ALKALINE PHOSPHATASE 80 IU/L (46-116); AMYLASE 22 U/L (25-115); ANION GAP 11 (8-16); ASPARTATE AMINO TRANSFERASE 37 U/L (10-37); BILIRUBIN,TOTAL 0.8 MG/DL (0.1-1.0); BLOOD UREA NITROGEN 8 MG/DL (7-18); BUN/CREATININE RATIO 12.7 (5.4-32.0); CALCIUM 8.1 MG/DL (8.5-10.1); CHLORIDE 108 MMOL/L (99-107); CREATININE 0.63 MG/DL (0.60-1.10); GLUCOSE 93 MG/DL (70-104); LIPASE < 50 U/L (73-393); MAGNESIUM 1.6 MG/DL (1.5-2.4); PHOSPHORUS 3.1 MG/DL (2.3-4.5); POTASSIUM 3.5 MMOL/L (3.5-5.1); SODIUM 142 MMOL/L (135-145); TOTAL CARBON DIOXIDE 22.6 MMOL/L (24-32); TOTAL PROTEIN 5.7 G/DL (6.4-8.2); eGFR > 90 ML/MIN
[2021-02-24] MEDS ORDERED: digoxin 250mcg/ml 2ml ampule IV ONE (10:40)
[2021-02-24 11:00] VITALS: BP 118/80
--- NOTE | 2021-02-24 11:06 | NUR ---
Paged Dr. Zarate PAGER ID: [phone] MESSAGE: POOJA Pablo III room 3012A; patient wants to leave, please call Carisa WILHELM [phone]
[2021-02-24] MEDS: digoxin 250mcg/ml 2ml ampule IV SCH (12:41)
[2021-02-24] MEDS: magnesium Cl slow-release 64mg tablet PO PRN (12:43)
[2021-02-24] MEDS: normal saline 1000ml 1,000 ML IV SCH (12:44)
[2021-02-24 15:00] VITALS: BP 127/92
[2021-02-24 18:00] VITALS: BP 120/84
--- NOTE | 2021-02-24 18:30 | NUR ---
I HAVE RECIEVED REPORT. I HAVE ASSUMED CARE OF THE PATIENT.
[2021-02-24 22:00] VITALS: BP 119/90
[2021-02-25] MEDS: LORazepam 2 mg/ml vial IV PRN ×6 (01:01→19:29)
[2021-02-25 03:00] VITALS: BP 124/90
[2021-02-25] MEDS: morphine 2 MG/ML inj. syringe IV PRN ×3 (04:45→16:05)
[2021-02-25 06:00] VITALS: BP 116/88
--- NOTE | 2021-02-25 06:05 | NUR ---
Patient in room PCU 3012A. I have received report from CHOCO Bustos and had the opportunity to ask questions and assume patient care.
[2021-02-25 06:24] LABS: EOSINOPHILS # (AUTO) 0.1 X10'3 (0-0.9); EOSINOPHILS % (AUTO) 1.3 % (0-6); HEMOGLOBIN 14.2 g/dl (14.0-17.9); MONOCYTES # (AUTO) 0.5 X10'3 (0-0.9); MONOCYTES % (AUTO) 8.4 % (2-12); RED BLOOD COUNT 4.29 X10'6 (4.70-6.10); WHITE BLOOD COUNT 5.7 X10'3 (4.5-11.0)
[2021-02-25 06:25] LABS: BASOPHILS % (AUTO) 0.3 % (0-1); LYMPHOCYTES # (AUTO) 1.1 X10'3 (1.1-4.8); LYMPHOCYTES % (AUTO) 18.4 % (21-51); MEAN CORPUSCULAR HEMOGLOBIN 33.2 PG (27.0-31.0); MEAN CORPUSCULAR HGB CONC 33.1 g/dL (33.0-36.5); MEAN CORPUSCULAR VOLUME 100.3 FL (78-98); MEAN PLATELET VOLUME 9.2 FL (7.4-10.4); NEUTROPHILS # (AUTO) 4.1 X10'3 (1.8-7.7); NEUTROPHILS % (AUTO) 71.6 % (42-75); PLATELET COUNT 79 X10'3 (140-440); RED CELL DISTRIBUTION WIDTH 15.4 % (11.5-14.5)
[2021-02-25 06:59] LABS: ALANINE AMINOTRANSFERASE 50 U/L (12-78); ALBUMIN 2.6 G/DL (3.4-5.0); ALBUMIN/GLOBULIN RATIO 0.8 (1.1-1.5); ALKALINE PHOSPHATASE 89 IU/L (46-116); AMYLASE 22 U/L (25-115); ANION GAP 10 (8-16); ASPARTATE AMINO TRANSFERASE 45 U/L (10-37); BILIRUBIN,TOTAL 0.7 MG/DL (0.1-1.0); BLOOD UREA NITROGEN 6 MG/DL (7-18); BUN/CREATININE RATIO 10.2 (5.4-32.0); CALCIUM 8.2 MG/DL (8.5-10.1); CHLORIDE 106 MMOL/L (99-107); CREATININE 0.59 MG/DL (0.60-1.10); GLUCOSE 100 MG/DL (70-104); LIPASE < 50 U/L (73-393); MAGNESIUM 1.6 MG/DL (1.5-2.4); PHOSPHORUS 3.7 MG/DL (2.3-4.5); POTASSIUM 3.4 MMOL/L (3.5-5.1); SODIUM 140 MMOL/L (135-145); TOTAL CARBON DIOXIDE 23.9 MMOL/L (24-32); TOTAL PROTEIN 5.9 G/DL (6.4-8.2); eGFR > 90 ML/MIN
[2021-02-25] MEDS ORDERED: digoxin 250mcg/ml 2ml ampule IV SCH (08:00)
[2021-02-25] MEDS: folic acid 1mg tablet PO SCH (08:25)
[2021-02-25] MEDS: thiamine 100mg tablet PO SCH (08:25)
[2021-02-25] MEDS: pantoprazole 40mg Tablet.DR PO SCH (08:26)
[2021-02-25] MEDS: potassium Cl 20 mEq SR tablet PO PRN (08:26)
[2021-02-25] MEDS: multivitamins, therapeutics tablet PO SCH (08:26)
[2021-02-25] MEDS: magnesium Cl slow-release 64mg tablet PO PRN (08:26)
[2021-02-25] MEDS: cloNIDine 0.1 mg tablet PO SCH ×2 (08:26→13:00)
[2021-02-25] MEDS: levetiracetam 250mg tablet PO SCH ×2 (08:26→19:29)
[2021-02-25] MEDS: nicotine 14mg patch - 24hr TD SCH (08:26)
[2021-02-25] MEDS: gabapentin 400mg capsule PO SCH ×2 (08:26→19:28)
[2021-02-25] MEDS: docusate sod 100mg capsule PO SCH ×2 (08:26→20:00)
[2021-02-25] MEDS: normal saline 1000ml 1,000 ML IV SCH (08:33)
[2021-02-25] MEDS: K and/or MAG REPLACEMENT MC SCH ×2 (08:50→20:00)
[2021-02-25 11:00] VITALS: BP 121/97
[2021-02-25] MEDS ORDERED: potassium Cl 20 mEq SR tablet PO PRN ×2 (14:25)
[2021-02-25] MEDS ORDERED: magnesium 4gm in 100ml NS 100 ML IV PRN (14:25)
[2021-02-25] MEDS ORDERED: magnesium Cl slow-release 64mg tablet PO PRN (14:25)
[2021-02-25] MEDS ORDERED: potassium Cl 40MEQ/1/2NS 520ml 520 ML IV PRN (14:25)
[2021-02-25 15:00] VITALS: BP 155/97
[2021-02-25 18:00] VITALS: BP 138/93
--- NOTE | 2021-02-25 18:05 | NUR ---
Problems reprioritized. Patient report given, questions answered & plan of care reviewed with CHOCO Davey.
[2021-02-25] MEDS: metoprolol tartrate 25mg tablet PO SCH (19:28)
[2021-02-25] MEDS: cyclobenzaprine 10mg tablet PO PRN (19:29)
[2021-02-25] MEDS: temazepam 15mg capsule PO PRN (19:29)
[2021-02-25 22:00] VITALS: BP 112/84
[2021-02-26] MEDS: normal saline 1000ml 1,000 ML IV SCH ×2 (04:16→11:22)
[2021-02-26] MEDS ORDERED: LORazepam 1 MG tablet PO PRN (05:30)
[2021-02-26] MEDS ORDERED: LORazepam 2 mg/ml vial IV PRN (05:30)
[2021-02-26 06:00] VITALS: BP 116/70
--- NOTE | 2021-02-26 06:40 | NUR ---
Patient in room ORTHO 4016. I have received report from Tamica WILHELM and had the opportunity to ask questions and assume patient care.
[2021-02-26 06:51] LABS: BASOPHILS % (AUTO) 0.5 % (0-1); EOSINOPHILS # (AUTO) 0.1 X10'3 (0-0.9); EOSINOPHILS % (AUTO) 0.9 % (0-6); HEMATOCRIT 45.1 % (42.0-52.0); HEMOGLOBIN 15.1 g/dl (14.0-17.9); LYMPHOCYTES # (AUTO) 1.2 X10'3 (1.1-4.8); LYMPHOCYTES % (AUTO) 15.2 % (21-51); MEAN CORPUSCULAR HEMOGLOBIN 33.2 PG (27.0-31.0); MEAN CORPUSCULAR HGB CONC 33.5 g/dL (33.0-36.5); MEAN PLATELET VOLUME 9.2 FL (7.4-10.4); MONOCYTES # (AUTO) 0.9 X10'3 (0-0.9); MONOCYTES % (AUTO) 11.9 % (2-12); NEUTROPHILS # (AUTO) 5.6 X10'3 (1.8-7.7); NEUTROPHILS % (AUTO) 71.5 % (42-75); PLATELET COUNT 99 X10'3 (140-440); RED BLOOD COUNT 4.56 X10'6 (4.70-6.10); RED CELL DISTRIBUTION WIDTH 15.4 % (11.5-14.5); WHITE BLOOD COUNT 7.9 X10'3 (4.5-11.0)
[2021-02-26 07:16] LABS: ALANINE AMINOTRANSFERASE 48 U/L (12-78); ALBUMIN 3.1 G/DL (3.4-5.0); ALBUMIN/GLOBULIN RATIO 0.8 (1.1-1.5); ALKALINE PHOSPHATASE 101 IU/L (46-116); AMYLASE 27 U/L (25-115); ANION GAP 9 (8-16); ASPARTATE AMINO TRANSFERASE 28 U/L (10-37); BILIRUBIN,TOTAL 0.5 MG/DL (0.1-1.0); BLOOD UREA NITROGEN 9 MG/DL (7-18); BUN/CREATININE RATIO 12.2 (5.4-32.0); CALCIUM 9.6 MG/DL (8.5-10.1); CHLORIDE 104 MMOL/L (99-107); CREATININE 0.74 MG/DL (0.60-1.10); GLUCOSE 119 MG/DL (70-104); LIPASE < 50 U/L (73-393); MAGNESIUM 1.7 MG/DL (1.5-2.4); PHOSPHORUS 4.5 MG/DL (2.3-4.5); POTASSIUM 3.9 MMOL/L (3.5-5.1); SODIUM 140 MMOL/L (135-145); TOTAL CARBON DIOXIDE 26.9 MMOL/L (24-32); TOTAL PROTEIN 6.9 G/DL (6.4-8.2); eGFR > 90 ML/MIN
[2021-02-26] MEDS: K and/or MAG REPLACEMENT MC SCH ×2 (08:00→20:00)
[2021-02-26] MEDS ORDERED: digoxin 250mcg (0.25mg) tablet PO SCH (08:00)
[2021-02-26] MEDS: gabapentin 400mg capsule PO SCH ×2 (08:32→20:03)
[2021-02-26] MEDS: folic acid 1mg tablet PO SCH (08:32)
[2021-02-26] MEDS: levetiracetam 250mg tablet PO SCH ×2 (08:32→20:03)
[2021-02-26] MEDS: multivitamins, therapeutics tablet PO SCH (08:33)
[2021-02-26] MEDS: HYDROcodone/acetaminophen 10/325mg tab PO PRN (08:33)
[2021-02-26] MEDS: pantoprazole 40mg Tablet.DR PO SCH (08:33)
[2021-02-26] MEDS: thiamine 100mg tablet PO SCH (08:33)
[2021-02-26] MEDS: docusate sod 100mg capsule PO SCH ×2 (08:34→20:00)
[2021-02-26] MEDS: nicotine 14mg patch - 24hr TD SCH (08:34)
[2021-02-26] MEDS: metoprolol tartrate 25mg tablet PO SCH ×2 (08:34→20:03)
[2021-02-26 10:00] VITALS: BP 118/84
--- NOTE | 2021-02-26 10:13 | NUR ---
Initial: Pt admit w/ alcoholism and withdrawal, HTN, and afib w/ RVR per MD note. Advanced to heart healthy diet from initial full liquids on admit PO 100% first solid meal last night up from initial 25% when on liquids. LBM 8/4 receiving routine colace. Receiving routine thiamin, folic, MVI for etoh hx. Will continue to monitor for PO trends and additional kcal needs this admit. Rec: 1. continue heart healthy diet; encourage PO 2. monitor for ONS needs pending further PO trends 3. thiamin, folic, MVI for etoh hx 4. routine bowel care 5. weekly wts Addendum: 02/26/21 at [address] Amended: Links added.
[2021-02-26] MEDS: LORazepam 2 mg/ml vial IV PRN ×3 (11:22→21:00)
--- NOTE | 2021-02-26 13:34 | NUR ---
Paged Active Directory Specialist regarding Sarah Savage from [facility] [phone]. Please call she has many question regarding discharge and care.
[2021-02-26 16:00] VITALS: BP 124/64
[2021-02-26] MEDS: naltrexone 50mg tablet PO SCH (16:05)
[2021-02-26] MEDS: morphine 2 MG/ML inj. syringe IV PRN ×2 (16:17→20:04)
[2021-02-26 18:00] VITALS: BP 130/84
[2021-02-26] MEDS: temazepam 15mg capsule PO PRN (21:00)
[2021-02-26 22:00] VITALS: BP 119/87
--- NOTE | 2021-02-27 04:59 | NUR ---
PATIENT NEVER IN RESTRAINTS OR EXHIBIT BEHAVIOR ISSUES THIS SHIFT. HOURLY ROUNDING DOCUMENTED FROM [id number] ON 02/26-02/27 ARE DOCUMENTED ON INCORRECT PATIENT. PLEASE DISREGARD.
[2021-02-27] MEDS: LORazepam 2 mg/ml vial IV PRN (05:30)
[2021-02-27] MEDS: HYDROcodone/acetaminophen 10/325mg tab PO PRN (05:33)
[2021-02-27] MEDS: cyclobenzaprine 10mg tablet PO PRN (05:33)
--- NOTE | 2021-02-27 06:43 | NUR ---
Patient in room ORTHO 4016. I have received report from CHOCO Davey and had the opportunity to ask questions and assume patient care.
[2021-02-27] MEDS: multivitamins, therapeutics tablet PO SCH (07:14)
[2021-02-27] MEDS: gabapentin 400mg capsule PO SCH (07:14)
[2021-02-27] MEDS: nicotine 14mg patch - 24hr TD SCH (07:14)
[2021-02-27] MEDS: docusate sod 100mg capsule PO SCH (07:14)
[2021-02-27] MEDS: levetiracetam 250mg tablet PO SCH (07:14)
[2021-02-27 07:15] VITALS: BP_SYST 125
[2021-02-27] MEDS: folic acid 1mg tablet PO SCH (07:15)
[2021-02-27] MEDS: metoprolol tartrate 25mg tablet PO SCH (07:15)
[2021-02-27] MEDS: thiamine 100mg tablet PO SCH (07:16)
[2021-02-27] MEDS: naltrexone 50mg tablet PO SCH (07:16)
[2021-02-27] MEDS: pantoprazole 40mg Tablet.DR PO SCH (07:26)
[2021-02-27] MEDS: K and/or MAG REPLACEMENT MC SCH (07:26)
[2021-02-27 08:03] LABS: BASOPHILS % (AUTO) 0.2 % (0-1); EOSINOPHILS % (AUTO) 0.6 % (0-6); HEMATOCRIT 47.9 % (42.0-52.0); LYMPHOCYTES # (AUTO) 1.6 X10'3 (1.1-4.8); LYMPHOCYTES % (AUTO) 20.8 % (21-51); MEAN CORPUSCULAR HEMOGLOBIN 33.3 PG (27.0-31.0); MEAN CORPUSCULAR HGB CONC 33.3 g/dL (33.0-36.5); MEAN PLATELET VOLUME 9.1 FL (7.4-10.4); MONOCYTES # (AUTO) 1.3 X10'3 (0-0.9); MONOCYTES % (AUTO) 16.4 % (2-12); NEUTROPHILS # (AUTO) 4.7 X10'3 (1.8-7.7); PLATELET COUNT 111 X10'3 (140-440); RED BLOOD COUNT 4.79 X10'6 (4.70-6.10); RED CELL DISTRIBUTION WIDTH 15.5 % (11.5-14.5); WHITE BLOOD COUNT 7.6 X10'3 (4.5-11.0)
[2021-02-27 08:19] LABS: ALANINE AMINOTRANSFERASE 43 U/L (12-78); ALBUMIN 3.3 G/DL (3.4-5.0); ALBUMIN/GLOBULIN RATIO 0.8 (1.1-1.5); ALKALINE PHOSPHATASE 100 IU/L (46-116); AMYLASE 31 U/L (25-115); ANION GAP 8 (8-16); ASPARTATE AMINO TRANSFERASE 27 U/L (10-37); BILIRUBIN,TOTAL 0.5 MG/DL (0.1-1.0); BLOOD UREA NITROGEN 9 MG/DL (7-18); BUN/CREATININE RATIO 12.3 (5.4-32.0); CALCIUM 9.1 MG/DL (8.5-10.1); CHLORIDE 102 MMOL/L (99-107); CREATININE 0.73 MG/DL (0.60-1.10); GLUCOSE 93 MG/DL (70-104); LIPASE 65 U/L (73-393); MAGNESIUM 1.7 MG/DL (1.5-2.4); PHOSPHORUS 3.7 MG/DL (2.3-4.5); POTASSIUM 3.5 MMOL/L (3.5-5.1); SODIUM 135 MMOL/L (135-145); TOTAL CARBON DIOXIDE 24.9 MMOL/L (24-32); TOTAL PROTEIN 7.6 G/DL (6.4-8.2); eGFR > 90 ML/MIN
--- NOTE | 2021-02-27 08:41 | NUR ---
PAGER ID: [phone] MESSAGE: Shanna Suarez0 santos Pablo in 4016- he is ready to leave AMA. Wants morphine. Needs to work with PT again. Please call me Addendum: 02/27/21 at 0842 by Ninfa Scott RN Dr Marcos called back, he is aware of the situation
[2021-02-27] MEDS ORDERED: LORA-269 PO (08:47)
[2021-02-27] MEDS ORDERED: NALT50TA PO (08:47)
[2021-02-27] MEDS ORDERED: LOP25T PO (08:47)
[2021-02-27] MEDS ORDERED: HYDR-3964 PO (08:47)
--- NOTE | 2021-02-27 10:42 | NUR ---
pt looking for his wallet he thinks he had with him on admit. I called to ER, TELE, and admitting, none of which has record of the wallet. A green velcro wallet, pt states. Finally pt says that he thinks he may have left it in the car. Educated pt re smoking with a patch on . Pt decided to remove patch.
== END 2021-02-27 10:45 | disposition home or self-care (01) | DRG 201 ==
LOC: ER 23:53 → ED HOLD 02-22 05:23 → PCU 3S 02-23 15:35 → ORTHO 4S 02-25 18:15
PROVIDERS: ADMIT Family Medicine; ATTEND Family Medicine
DX: I48.0 Paroxysmal atrial fibrillation (principal); E86.0 Dehydration; F10.239 Alcohol dependence with withdrawal, unspecified; F12.10 Cannabis abuse, uncomplicated; F17.210 Nicotine dependence, cigarettes, uncomplicated; F31.9 Bipolar disorder, unspecified; G40.909 Epilepsy, unspecified, not intractable, without status epilepticus; I10 Essential (primary) hypertension; Z59.0 Homelessness; Z87.442 Personal history of urinary calculi; Z88.8 Allergy status to other drugs, medicaments and biological substances; Z90.49 Acquired absence of other specified parts of digestive tract; Z56.0 Unemployment, unspecified; Z79.899 Other long term (current) drug therapy; Z71.6 Tobacco abuse counseling
CPT/HCPCS: 36415; 70450; 71045; 80053; 80162; 80305; 80320; 82150; 83690; 83735; 83880; 84100; 84443; 84484; 85025; 85610; 85730; 93005; 97110; 97161; 97530; 99285; C9113; G0378; J1160; J2060; J2270; J2405; J2560; J3490; J7030